=== PATIENT | female | born 1985 | race Hispanic/Latino ===

== ENCOUNTER 2023-04-11 10:58 | Outpatient (CLI) | payer BC | END 2023-04-11 10:59 | disposition home or self-care (01) | LOC: SCSRAD 10:58 | PROVIDERS: ATTEND Chiropractor Sports Physician | DX: M43.16 Spondylolisthesis, lumbar region (principal); M47.816 Spondylosis without myelopathy or radiculopathy, lumbar region | CPT/HCPCS: 72110 ==

== ENCOUNTER 2024-02-11 11:04 | Day surgery (SDC) | payer BC ==
[2024-02-08 13:08] VITALS: BMI 25.1
[2024-02-11] MEDS ORDERED: Midazolam HCl 2 mg/2 ml Vial ONE (13:44)
[2024-02-11] MEDS ORDERED: PROPOFOL 200 MG/20 ML VIAL ONE (13:50)
[2024-02-11] MEDS ORDERED: Dexamethasone 20 MG/5 ML VIAL ONE (13:50)
[2024-02-11] MEDS ORDERED: Ondansetron PF 4 MG/2 ML Vial ONE (13:50)
[2024-02-11] MEDS ORDERED: Lidocaine 1% PF 5 ML VIAL ONE (13:50)
== END 2024-02-11 16:00 | disposition home or self-care (01) ==
LOC: MRI 11:04
PROVIDERS: ATTEND Physical Medicine & Rehabilitation
DX: M54.50 Low back pain, unspecified (principal); E03.9 Hypothyroidism, unspecified; Z79.890 Hormone replacement therapy; Z79.899 Other long term (current) drug therapy; Z98.890 Other specified postprocedural states
CPT/HCPCS: 72148; J1100; J2250; J2405; J2704